=== PATIENT | female | born 1970 | race Caucasian/White ===

== ENCOUNTER 2016-12-29 07:12 | Emergency (ER) | payer OTHER ==
[2016-12-29 07:21] VITALS: BMI 28.2
[2016-12-29 07:22] VITALS: BP 129/69; PULSE 76; RESP 17; TEMP 98.5; O2SAT 100
--- NOTE | 2016-12-29 07:47 | ED PDOC ---
Upper Extremity Pain/Injury Time Seen by Provider: 12/29/16 07:27 Chief Complaint (Nursing): Finger,Hand,&Wrist Chief Complaint (Provider): Left Hand Injury s/p fall History Per: Patient History/Exam Limitations: no limitations Onset/Duration Of Symptoms: Days (x1) Current Symptoms Are (Timing): Still Present Additional Complaint(s): Shandra Radford is a 46 year old female with a past medical history of Arthritis , Trigeminal Neuralgia, and Angiomyolipoma and a past surgical history of a right radial nephrectomy and left ankle plate and screw insertion presenting to the ED for an evaluation of a left hand injury occurring status post fall. The patient states she tripped over her daughters converses in the middle of the night prior to arrival causing her to fall and injure her left hand. The patient complains of left hand pain and has taken Ibuprofen 800 mg at 5:30 AM this morning for the pain. She denies any other injuries. PMD: Kirill Claire MD Past Medical History Reviewed: Historical Data, Nursing Documentation, Vital Signs Vital Signs: Last Vital Signs Temp 98.5 F 12/29/16 07:21 Pulse 76 12/29/16 07:21 Resp 17 12/29/16 07:21 BP 129/69 12/29/16 07:21 Pulse Ox 100 12/29/16 07:21 - Medical History PMH: Arthritis Other PMH: trigeminal neuralgia, angiomyolipoma - Surgical History Other surgeries: right radial nephrectomy; left ankle surgery - Family History Family History: States: Unknown Family Hx - Social History Current smoker - smoking cessation education provided: Yes Alcohol: Social - Home Medications Home Medications: Ambulatory Orders Medication Instructions Recorded Amitriptyline [Elavil] 25 mg PO HS 02/20/14 Ca Pantothenate/Folic Acid/V [Once 1 tab PO DAILY 02/20/14 Daily Multi-Vitamin] Fish Oil 1 cap PO DAILY 02/20/14 diaZEpam [Valium] 10 mg PO HS PRN 02/20/14 Amoxicillin/Clavulanate [Augmentin 1 tab PO BID #20 tab 02/24/14 875 MG-125 MG Tab] - Allergies Allergies/Adverse Reactions: Allergies Allergy/AdvReac Type Severity Reaction Status Date / Time chlorpromazine AdvReac NAUSEA Verified 12/29/16 07:31 codeine AdvReac NAUSEA Verified 12/29/16 07:31 Review of Systems ROS Statement: Except As Marked, All Systems Reviewed And Found Negative Musculoskeletal: Positive for: Hand Pain (left hand pain ) Physical Exam - Reviewed Nursing Documentation Reviewed: Yes Vital Signs Reviewed: Yes - Physical Exam Appears: Positive for: Non-toxic, No Acute Distress Head Exam: Positive for: ATRAUMATIC, NORMOCEPHALIC Neck: Positive for: Normal, Painless ROM, Supple Pulses-Radial (L): 2+ Pulses-Radial (R): 2+ Extremity: Positive for: Normal ROM (to left hand), Tenderness (to palpation to left hand), Other (induration and ecchymosis to hypothenar area on left hand) Neurologic/Psych: Positive for: Alert, log rafter II-XII (sensations intact), Oriented (x3). Negative for: Motor/Sensory Deficits - ECG O2 Sat by Pulse Oximetry: 100 (RA) Pulse Ox Interpretation: Normal - Radiology X-Ray: Interpreted by Me, Viewed By Me X-Ray Interpretation: No Acute Disease Medical Decision Making Medical Decision Making: Time: 07:27 Impression: Left hand injury s/p fall Plan: * [RAD] Hand Left 3 Views Routine * [RAD] Wrist, Left 3 Views * Reevaluation Scribe Attestation: Documented by Alva Mathews, acting as a scribe for Kristen Crawford MD. Provider Scribe Attestation: All medical record entries made by the Scribe were at my direction and personally dictated by me. I have reviewed the chart and agree that the record accurately reflects my personal performance of the history, physical exam, medical decision making, and the department course for this patient. I have also personally directed, reviewed, and agree with the discharge instructions and disposition. Disposition - Clinical Impression Clinical Impression: Contusion - Patient ED Disposition Is Patient to be Admitted: No Doctor Will See Patient In The: Office Counseled Patient/Family Regarding: Diagnosis, Need For Followup - Disposition Disposition: Routine/Home Disposition Time: 08:00 Condition: STABLE Additional Instructions: repeat x-rays in 7-10 days if pain does not resolve significantly Instructions: Contusion in Adults (ED) Forms: [facility] (Danish) - POA Present On Arrival: Falls Or Trauma
--- NOTE | 2016-12-29 10:43 | RAD ---
PROCEDURE: Left Hand Radiographs. HISTORY: fall with blunt injury COMPARISON: None. FINDINGS: BONES: Normal. No fracture. JOINTS: Normal. No osteoarthritic changes. SOFT TISSUES: Normal. OTHER FINDINGS: None. IMPRESSION: Normal left hand radiographs.
--- NOTE | 2016-12-29 10:47 | RAD ---
PROCEDURE: Left Wrist Radiographs. HISTORY: FALL WITH BLUNT INJURY COMPARISON: None. FINDINGS: BONES: Normal. No fracture. JOINTS: Normal. No dislocation. SOFT TISSUES: Normal. OTHER FINDINGS: None. IMPRESSION: Normal left wrist radiographs.
== END 2016-12-29 08:32 | disposition home or self-care (01) ==
LOC: H.ER 07:12
DX: S60.222A Contusion of left hand, initial encounter (principal); W19.XXXA Unspecified fall, initial encounter; Y92.89 Other specified places as the place of occurrence of the external cause